=== PATIENT | male | born 1985 | race Caucasian/White ===

== ENCOUNTER → 2018-05-03 | Outpatient (CLI) | payer BC ==
[~2018-05-03] MED LIST: NO MEDS
--- NOTE | 2018-05-03 15:53 | Diagnostic Imaging Report ---
TECHNIQUE: Magnetic resonance imaging of the RIGHT ANKLE was performed WITHOUT injected contrast. COMPARISON: None available. HISTORY: Ankle pain FINDINGS: LIGAMENTS: Medial Complex: Deltoid contusion. Lateral Complex: Tibiofibular ligaments intact. High-grade tear of the anterior talofibular ligament and calcaneofibular ligament. TENDONS: Medial: Posterior tibial tendon and flexor tendons intact. Lateral: Reactive peroneal tenosynovitis. Anterior: Anterior tibial and extensor tendons intact Achilles: Achilles tendon intact. BONES: No focal or infiltrative bone marrow replacing abnormality. No acute fracture or osteonecrosis. JOINTS: Cartilage: No focal defect is identified involving the tibiotalar joint. Other: Ankle joint effusion. SOFT TISSUES: Soft tissue edema and swelling lateral ankle. IMPRESSION: Ankle inversion injury with high-grade tearing of the anterior talofibular and calcaneofibular ligaments. Reactive peroneal tenosynovitis. Ankle effusion. Signed by: Dr. Harinder Leone M.D. on 05/03/2018 3:50 PM
== END ==
LOC: MRI 13:32
PROVIDERS: ATTEND Podiatrist Foot & Ankle Surgery
DX: S93.411A Sprain of calcaneofibular ligament of right ankle, initial encounter (principal); S93.491A Sprain of other ligament of right ankle, initial encounter

== ENCOUNTER → 2018-05-15 | Day surgery (SDC) | payer BC ==
[~2018-05-15] MED LIST changes: +BUPIVACAINE HCL 0.5% INJ 30 ML VIAL INJ ONE; +CEFAZOLIN SOD 1 GM VIAL ONE; +CEFAZOLIN SOD 1 GM/NS 50ML 50 ML IV ONE; +DEXAMETHASONE SOD PHOS INJ 4 MG/ML VIAL ONE; +FENTANYL CITRATE/PF 100MCG/2 ML INJ ONE; +KETOROLAC TROMETHAMINE 30 MG/ML VIAL ONE; +MIDAZOLAM HCL 2 MG/2 ML VIAL ONE; +NEOSTIGMINE 1 MG/ML 10ML VIAL ONE; +ONDANSETRON HCL INJ 2MG/ML 2ML 2 MG/ML VIAL ONE; +PROPOFOL IV EMULSION 10 MG/ML 20 ML VIAL ONE; +SEVOFLURANE INHAL SOLN 250 ML PEN BTL ONE
--- OUTSIDE RECORDS SUMMARY | 2018-05-15 05:10 | XMS REPORT | Summary of Care ---
Author Organization Unknown Address Unknown Phone Unavailable Encounter [facility]USHT[facility]) [id number] Date(s): 08/27/13 - 08/28/[address] Discharge Disposition: Home Physician Attending: Jolene Michel MD Physician Admitting: Jolene Michel MD Physician_Referring: Jolene Michel MD Reason for Visit AFIB, SVT, PALPITATION Vital Signs 1 2 3 Most recent to oldest [Reference Range]: 180.34 cm (08/27/13 6:08 AM) Height 98.4 DegF (08/28/13 7:15 AM) 97.0 DegF (08/27/13 6:00 PM) Temperature Oral [96.4-99.1 DegF] 91 mmHg (08/28/13 7:15 AM) 96 mmHg (08/28/13 4:00 AM) 98 mmHg (08/27/13 9:33 PM) Systolic Blood Pressure [90-140 mmHg] 54 mmHg *LOW* (08/28/13 7:15 AM) 51 mmHg *LOW* (08/28/13 4:00 AM) 58 mmHg *LOW* (08/27/13 9:33 PM) Diastolic Blood Pressure [60-90 mmHg] 20 BRMIN (08/28/13 7:15 AM) 16 BRMIN (08/28/13 4:05 AM) 22 BRMIN *HI* (08/28/13 4:00 AM) Respiratory Rate [14-20 BRMIN] 70.455 kg (08/27/13 6:08 AM) Weight 21.66 m2 (08/27/13 6:08 AM) Body Mass Index Problem List Condition Effective Dates Status Health Status Informant Palpitations(Confirm Resolved ed) Allergies, Adverse Reactions, Alerts Substance Reaction Severity Status NKDA Active Medications Carafate 1 gm, 1 tab, Route: PO, Drug form: TAB, QID, Dosing Weight 70.455, kg, Start liberty e: 08/27/13 17:00:00, Duration: 30 day, Stop date: 09/26/13 13:00:00 Notes: May interfere w/enteral feeds - Take 1 hr before or 2 hr after antacids, dairy pdt, meals & minerals - On empty stomach. (Same As: Carafate) Start Date: 08/27/13 Stop Date: 08/28/13 Status: Discontinued flecainide 100 mg, 1 tab, Route: PO, Drug form: TAB, Q12H, Dosing Weight 70.455, kg, Start date: 08/27/13 21:00:00, Duration: 30 day, Stop date: 09/26/13 9:00:00 Notes: (Same as: Tambocor) Start Date: 08/27/13 Stop Date: 08/28/13 Status: Discontinued flecainide 100 mg oral tablet 100 mg=1 tab, PO, Q12H, # 60 tab, 0 Refill(s) Start Date: 08/27/13 Status: Ordered flumazenil 0.2 mg, 2 mL, Route: IVP, Drug form: INJ, PRN, Dosing Weight 70.455, kg, PRN Tayo zodiazepine Reversal, Initial dose, Start date: 08/27/13 11:49:00, Duration: 30 day, Stop date: 09/26/13 11:48:00 Notes: (Same as: Romazicon) Start Date: 08/27/13 Stop Date: 08/28/13 Status: Discontinued magnesium oxide 400 mg, 1 tab, Route: PO, Drug form: TAB, ONCE, Dosing Weight 70.455, kg, Start date: 08/28/13 9:35:00, Stop date: 08/28/13 9:35:00 Notes: (Same as: Mag-Ox 400)Magnesium oxide [id number] elemental magnesiumDose= ____mg magnesium oxide (___mg elemental magnesium) Start Date: 08/28/13 Stop Date: 08/28/13 Status: Completed magnesium oxide 600 mg oral capsule 600 mg=1 cap, PO, BID, # 14 cap, 0 Refill(s) Start Date: 08/28/13 Status: Ordered magnesium sulfate 2 gm, 50 mL, Route: IVPB, Drug form: INJ, Q2H, Dosing Weight 70.455, kg, Total d ose=4 gm, Start date: 08/28/13 8:00:00, Duration: 2 doses or times, Stop date: 0 08/28/13 10:00:00 Start Date: 08/28/13 Stop Date: 08/28/13 Status: Discontinued magnesium sulfate 2 gm, 50 mL, Route: IVPB, Drug form: INJ, ONCE, Dosing Weight 70.455, kg, Total dose=4 gm, Start date: 08/28/13 8:38:00, Stop date: 08/28/13 8:38:00 Start Date: 08/28/13 Stop Date: 08/28/13 Status: Completed meperidine 12.5 mg, 0.5 mL, Route: IVP, Drug form: INJ, Q30Min, Dosing Weight 70.455, kg, P RN Other -See Comment, For shivering, Start date: 08/27/13 11:49:00, Duration: 2 doses or times, Stop date: Limited # of times Notes: (Same as: Demerol) "Use Precaution in Elderly, Seizure disorders, and Re nal impairment" Start Date: 08/27/13 Stop Date: 08/28/13 Status: Discontinued morphine Sulfate 2 mg, 1 mL, Route: IVP, Drug form: INJ, Q2H, Dosing Weight 70.455, kg, PRN Pain, Start date: 08/27/13 15:24:00, Duration: 30 day, Stop date: 09/26/13 15:23:00 Notes: (Same as:MORPhine Sulfate) Start Date: 08/27/13 Stop Date: 08/28/13 Status: Discontinued naloxone 0.04 mg, 0.1 mL, Route: IVP, Drug form: INJ, Q2MIN, Dosing Weight 70.455, kg, MT N Narcotic Reversal, Start date: 08/27/13 11:49:00, Duration: 8 doses or times, Stop date: Limited # of times Notes: (Same as: Narcan) Start Date: 08/27/13 Stop Date: 08/28/13 Status: Discontinued [place] 5/325 oral tablet 1 tab, PO, Q4H, Pain Score 1-5, # 24 tab, 0 Refill(s) Start Date: 08/28/13 Status: Ordered [place] 5/325 oral tablet 1 tab, Route: PO, Drug Form: TAB, Dosing Weight 70.455, kg, Q4H, PRN Pain Score 1-5, Start date: 08/27/13 15:24:00, Duration: 30 day, Stop date: 09/26/13 15:23: 00 Notes: (Same as: [place] 325/5) Do not exceed 4gm/day of acetaminophen. Start Date: 08/27/13 Stop Date: 08/28/13 Status: Discontinued ondansetron 4 mg, 2 mL, Route: IVP, Drug form: INJ, ONCE, Dosing Weight 70.455, kg, PRN Naus ea & Vomiting, Start date: 08/27/13 11:49:00 Notes: (Same as: Zofran) Start Date: 08/27/13 Stop Date: 08/28/13 Status: Discontinued pantoprazole 40 mg oral enteric coated tablet 40 mg=1 tab, PO, Before Dinner, # 14 tab, 0 Refill(s) Start Date: 08/28/13 Status: Ordered Protonix 40 mg, 1 tab, Route: PO, Drug form: ECTAB, Before Dinner, Dosing Weight 70.455, kg, Start date: 08/27/13 16:30:00, Duration: 30 day, Stop date: 09/25/13 16:30:0 0 Notes: Tablet should not be chewed or crushed.(Same as: Protonix) Start Date: 08/27/13 Stop Date: 08/28/13 Status: Discontinued rivaroxaban 20 mg, 1 tab, Route: PO, Drug form: TAB, QPM, Dosing Weight 70.455, kg, Start da te: 08/27/13 20:00:00, Duration: 30 day, Stop date: 09/26/13 17:00:00 Notes: (Same as: Xarelto)Administer with food Start Date: 08/27/13 Stop Date: 08/28/13 Status: Discontinued sucralfate 1 g oral tablet 1 gm=1 tab, PO, QID, # 56 tab, 0 Refill(s) Start Date: 08/28/13 Status: Ordered Xarelto 20 mg oral tablet 0 Refill(s) Start Date: 08/27/13 Status: Ordered Results BLOOD BANK RESULTS Most recent to 1 2 oldest [Reference Range]: ABO/Rh A POS *Unknown* (08/27/13 6:00 AM) Antibody Scrn Negative (08/27/13 6:00 AM) ELECTROLYTES Most recent to 1 2 oldest [Reference Range]: Sodium Lvl [135-145 142 mEq/L 145 mEq/L mEq/L] (08/28/13 3:53 AM) (08/27/13 6:17 AM) Potassium Lvl 3.7 mEq/L 4.0 mEq/L [3.5-5.1 mEq/L] (08/28/13 3:53 AM) (08/27/13 6:17 AM) Chloride Lvl [95-109 107 mEq/L 108 mEq/L mEq/L] (08/28/13 3:53 AM) (08/27/13 6:17 AM) CO2 [24-32 mEq/L] 25 mEq/L 29 mEq/L (08/28/13 3:53 AM) (08/27/13 6:17 AM) AGAP [10.0-20.0 13.7 mEq/L 12.0 mEq/L mEq/L] (08/28/13 3:53 AM) (08/27/13 6:17 AM) CHEM PANEL Most recent to 1 2 oldest [Reference Range]: Creatinine Lvl 0.9 mg/dL 1.0 mg/dL [0.5-1.4 mg/dL] (08/28/13 3:53 AM) (08/27/13 6:17 AM) eGFR 117 mL/min/1.73m2 1 103 mL/min/1.73m2 2 *NA* *NA* (08/28/13 3:53 AM) (08/27/13 6:17 AM) BUN [7-22 mg/dL] 10 mg/dL 17 mg/dL (08/28/13 3:53 AM) (08/27/13 6:17 AM) Glucose Lvl [70-99 107 mg/dL 3 90 mg/dL 4 mg/dL] *HI* (08/27/13 6:17 AM) (08/28/13 3:53 AM) Calcium Lvl 8.2 mg/dL 9.0 mg/dL [8.5-10.5 mg/dL] *LOW* (08/27/13 6:17 AM) (08/28/13 3:53 AM) Magnesium Lvl 1.5 mg/dL 2.1 mg/dL [1.8-2.4 mg/dL] *LOW* (08/27/13 6:17 AM) (08/28/13 3:53 AM) 1Result Comment: The eGFR is calculated using the CKD-EPI formula. In most young, healthy individuals the eGFR will be >90 mL/min/1.73m2. The eGFR declines with age. An eGFR of 60-89 may be normal in some populations, particularly the elderly, for whom the CKD-EPI formula has not been extensively validated. Use of the eGFR is not recommended in the following populations: Individuals with unstable creatinine concentrations, including patients and those with serious co-morbid conditions. Patients with extremes in muscle mass or diet. The data above are obtained from the National Kidney Disease Education Program ( NKDEP) which additionally recommends that when the eGFR is used in patients with extremes of body mass index for purposes of drug dosing, the eGFR should be mul tiplied by the estimated BMI. 2Result Comment: The eGFR is calculated using the CKD-EPI formula. In most young, healthy individuals the eGFR will be >90 mL/min/1.73m2. The eGFR declines with age. An eGFR of 60-89 may be normal in some populations, particularly the elderly, for whom the CKD-EPI formula has not been extensively validated. Use of the eGFR is not recommended in the following populations: Individuals with unstable creatinine concentrations, including patients and those with serious co-morbid conditions. Patients with extremes in muscle mass or diet. The data above are obtained from the National Kidney Disease Education Program ( NKDEP) which additionally recommends that when the eGFR is used in patients with extremes of body mass index for purposes of drug dosing, the eGFR should be mul tiplied by the estimated BMI. 3Interpretive Data: Adult reference range values reflect the clinical guidelines of the [place] [employer]. 4Interpretive Data: Adult reference range values reflect the clinical guidelines of the [place] [employer]. HEMATOLOGY Most recent to 1 2 oldest [Reference Range]: WBC [3.7-10.4 K/CMM] 10.6 K/CMM 4.9 K/CMM *HI* (08/27/13 6:17 AM) (08/28/13 3:53 AM) RBC [4.70-6.10 3.80 M/CMM 4.61 M/CMM M/CMM] *LOW* *LOW* (08/28/13 3:53 AM) (08/27/13 6:17 AM) Hgb [14.0-18.0 g/dL] 12.2 g/dL 14.6 g/dL *LOW* (08/27/13 6:17 AM) (08/28/13 3:53 AM) Hct [42.0-54.0 %] 36.4 % 43.1 % *LOW* (08/27/13 6:17 AM) (08/28/13 3:53 AM) MCV [80.0-94.0 fL] 95.7 fL 93.5 fL *HI* (08/27/13 6:17 AM) (08/28/13 3:53 AM) MCH [27.0-31.0 pg] 32.1 pg 31.6 pg *HI* *HI* (08/28/13 3:53 AM) (08/27/13 6:17 AM) MCHC [32.0-36.0 33.5 g/dL 33.8 g/dL g/dL] (08/28/13 3:53 AM) (08/27/13 6:17 AM) RDW [11.5-14.5 %] 13.3 % 13.6 % (08/28/13 3:53 AM) (08/27/13 6:17 AM) Platelet [133-450 162 K/CMM 196 K/CMM K/CMM] (08/28/13 3:53 AM) (08/27/13 6:17 AM) MPV [7.4-10.4 fL] 9.7 fL 9.4 fL (08/28/13 3:53 AM) (08/27/13 6:17 AM) Segs [45.0-75.0 %] 79.3 % 49.7 % *HI* (08/27/13 6:17 AM) (08/28/13 3:53 AM) Lymphocytes 11.4 % 36.0 % [20.0-40.0 %] *LOW* (08/27/13 6:17 AM) (08/28/13 3:53 AM) Monocytes [2.0-12.0 9.0 % 10.8 % %] (08/28/13 3:53 AM) (08/27/13 6:17 AM) Eosinophils [0.0-4.0 0.2 % 2.9 % %] (08/28/13 3:53 AM) (08/27/13 6:17 AM) Basophils [0.0-1.0 0.1 % 0.6 % %] (08/28/13 3:53 AM) (08/27/13 6:17 AM) Segs-Bands # 8.4 K/CMM 2.4 K/CMM [1.5-8.1 K/CMM] *HI* (08/27/13 6:17 AM) (08/28/13 3:53 AM) Lymphocytes # 1.2 K/CMM 1.8 K/CMM [1.0-5.5 K/CMM] (08/28/13 3:53 AM) (08/27/13 6:17 AM) Monocytes # [0.0-0.8 1.0 K/CMM 0.5 K/CMM K/CMM] *HI* (08/27/13 6:17 AM) (08/28/13 3:53 AM) Eosinophils # 0.1 K/CMM [0.0-0.5 K/CMM] (08/27/13 6:17 AM) Basophils # [0.0-0.2 0.3 K/CMM K/CMM] *HI* (08/27/13 6:17 AM) PT [12.0-14.7 14.0 seconds seconds] (08/27/13 6:17 AM) INR [0.85-1.17] 1.09 5 (08/27/13 6:17 AM) POC Activated 139 seconds Clotting Time *NA* (08/27/13 1:19 PM) PTT [22.9-35.8 30.6 seconds 6 seconds] (08/27/13 6:17 AM) 5Interpretive Data: RECOMMENDED RANGES FOR PROTIME INR: 2.0-3.0 for most medical and surgical thromboembolic states. 2.5-3.5 for artificial heart valves and recurrent embolism. INR SHOULD BE USED ONLY FOR PATIENTS ON STABLE ANTICOAGULANT THERAPY. 6Interpretive Data: Heparin Therapeutic Range: 57 - 92 Seconds Medications Administered During Your Visit No data available for this section Immunizations No data available for this section Procedures Procedure Type Body Site Date of Procedure Related Diagnosis Incision AND drainage ORIF - Open reduction and internal fixation of fracture Social History Social History Type Response Alcohol Use: Current, Frequency: 1-2 times per week Smoking Status Former smoker, Exposure to Tobacco Smoke None, Cigarette Smoking Last 365 Days No, Reg Smoking Cessation Counseling No Assessment and Plan Extracted from: Title: EP Note Author: Tricia Reyes MD Date: 08/28/13 Progress Note - Daily [facility] Completed: , AUG 28, 2013, 07:50 by Tricia Reyes MD RM: 117 - 00, [id number], [id number] (: 1985) M Attending: Jolene Michel MDPhone: Service: Cardiology Service Reason for Admission: AFIB, SVT, PALPITATION Allergies: NKDA SUBJECTIVE: No complaints of palpitations or chest pain. States he has some dysuria and dyspepsia. Otherwise, doing well post ablation. OBJECTIVE Telemetry: No events overnight Gen: Sleeping but arousible. NAD. HEENT: PERRLA, EOMI. No JVD/bruits. CV: RRR, no murmurs, rubs or gallops. Resp: Lungs CTAB Abd: NABS, abdomen soft, NT. Ext: Groins bilaterally without hematoma, No bruising noted. No edema. 24hr Labs 08/28 0353 CHEM Glucose Cgk762 H BUN10 Creatinine Lvl0.9 Sodium Ldo481 Potassium Lvl3.7 Chloride Wgz334 CO225 AGAP13.7 Calcium Lvl8.2 L nVOZ981 Magnesium Lvl1.5 CBC WBC10.6 H RBC3.80 L Hgb12.2 L Hct36.4 L MCV95.7 H MCH32.1 H MCHC33.5 RDW13.3 Ceiezzoe055 MPV9.7 Segs79.3 H Monocytes9.0 Vwekozxukkz91.4 L Eosinophils0.2 Basophils0.1 Segs-Bands #8.4 H Lymphocytes #1.2 Monocytes #1.0 H 08/27 1319 POC Activated [id number] 08/27 0617 Basophils #0.3 H 08/27 0600 Antibody ScrnNegative ABO/RhA POS [place] still necessary (Yes/No): Line still necessary (Yes/No): VitalsTmp(F)[id number] 08/28 04:05----84-----16------ 08/28 04:00----8296/5122------ 08/27 21:33----8498/5826------ 08/27 18:0097.98347/[id number]--- 08/27 17:00----[id number]--- 24 Hr Tmax: 97.6F (36.44c) at 08/27 12:45Vital Signs are the last 5 in the past 48 hours. DateWt(kg)Wt(lb)Ht(cm)Ht(in)Method 08/27 (initial) 70.45 155.28259.34 71.00Stated I&ORecordInOutBal /0224hr Tot 8777 543 4720 0124hr Tot 0 0 0 Medications (9) Active Scheduled Meds (4): 08/27/13 flecainide 100 mg PO Q12H 08/27/13 pantoprazole (Protonix) 40 mg PO Before Dinner 08/27/13 rivaroxaban 20 mg PO QPM 08/27/13 sucralfate (Carafate) 1 gm PO QID Unscheduled Meds: None PRN Meds (5): 08/27/13 acetaminophen-hydrocodone ([place] 5/325 oral tablet) 1 tab PO Q4H 08/27/13 flumazenil 0.2 mg IVP PRN 08/27/13 meperidine 12.5 mg IVP Q30Min 08/27/13 morphine Sulfate 2 mg IVP Q2H 08/27/13 naloxone 0.04 mg IVP Q2MIN One Time Meds: None Continuous Infusions: None ASSESSMENT 27 year old with history of atrial fibrillation, s/p PVI. Doing well post procedure. PLAN & TREATMENT 1. Anticipate discharge today with flecanide, PPI. 2. Will give Magnesium this AM to replete. 3. Rest per Dr. Anand Reyes M.D. EP Fellow
--- OUTSIDE RECORDS SUMMARY | 2018-05-15 05:10 | XMS REPORT | Summary of Care ---
Author Organization Unknown Address Unknown Phone Unavailable Encounter [facility](MUSHTAQ) [id number] Date(s): 08/25/13 - 08/25/13 [place] [id number] [address] Discharge Disposition: Home Physician Attending: Jolene Michel MD Physician_Referring: Jolene Michel MD Reason for Visit 427.31/ 427.89/785.1/786.05 Problem List Condition Effective Dates Status Health Status Informant Palpitations(Confirm Resolved ed) Allergies, Adverse Reactions, Alerts Substance Reaction Severity Status NKDA Active Medications No data available for this section Results CHEM PANEL Most recent to 1 oldest [Reference Range]: eGFR 92 mL/min/1.73m2 1 *NA* (08/25/13 2:08 PM) POC Creatinine 1.1 mg/dL [0.5-1.4 mg/dL] (08/25/13 2:08 PM) 1Result Comment: The eGFR is calculated using [...] be mul tiplied by the estimated BMI. Medications Administered During Your Visit No data available for this section Immunizations No data available for this section Social History Social History Type Response Alcohol Use: Current, Frequency: 1-2 times per week Smoking Status Former smoker, Exposure to Tobacco Smoke None, Cigarette Smoking Last 365 Days No, Reg Smoking Cessation Counseling No
--- OUTSIDE RECORDS SUMMARY | 2018-05-15 05:10 | XMS REPORT | Continuity of Care Document ---
Author Author [facility] Interface Address Unknown Phone Unavailable Problems Problem Status Onset Date Classification Date Reported Comments Source AFIB, SVT, PALPITATION Active 08/15/2013 [facility] 427.31/ 427.89/785.1/786.05 Active 08/15/2013 [facility] Palpitations Resolved Problem 08/30/2013 [facility] Medications Medication Details Route Status Patient Instructions Ordering Provider Order Date Source Magnesium Oxide 400 mg, 1 tab, Route: PO, Drug form: TAB, ONCE, Dosing Weight 70.455, kg, Start date: 08/28/13 9:35:00, Stop date: 08/28/13 9:35:00Notes: (Same as: Mag-Ox 400) Magnesium oxide [id number] elemental magnesium Dose=____mg magnesium oxide (___mg elemental magnesium) Inactive 08/28/2013 [facility] magnesium oxide 600 mg oral capsule 600 mg=1 cap, PO, BID, # 14 cap, 0 Refill(s) Active 08/28/2013 [facility] Magnesium Sulfate 2 gm, 50 mL, Route: IVPB, Drug form: INJ, ONCE, Dosing Weight 70.455, kg, Total dose=4 gm, Start date: 08/28/13 8:38:00, Stop date: 08/28/13 8:38:00 Inactive 08/28/2013 [facility] sucralfate 1 g oral tablet 1 gm=1 tab, PO, QID, # 56 tab, 0 Refill(s) Active 08/28/2013 [facility] pantoprazole 40 mg oral enteric coated tablet 40 mg=1 tab, PO, Before Dinner, # 14 tab, 0 Refill(s) Active 08/28/2013 [facility] Acetaminophen 325 MG / Hydrocodone Bitartrate 5 MG Oral Tablet [Hobbs 5/325] 1 tab, PO, Q4H, Pain Score 1-5, # 24 tab, 0 Refill(s) Active 08/28/2013 [facility] Magnesium Sulfate 2 gm, 50 mL, Route: IVPB, Drug form: INJ, Q2H, Dosing Weight 70.455, kg, Total dose=4 gm, Start date: 08/28/13 8:00:00, Duration: 2 doses or times, Stop date: 08/28/13 10:00:00 Inactive 08/28/2013 [facility] Flecainide 100 mg, 1 tab, Route: PO, Drug form: TAB, Q12H, Dosing Weight 70.455, kg, Start date: 08/27/13 21:00:00, Duration: 30 day, Stop date: 09/26/13 9:00:00Notes: (Same as: Tambocor) No Longer Active 08/28/2013 [facility] rivaroxaban 20 mg, 1 tab, Route: PO, Drug form: TAB, QPM, Dosing Weight 70.455, kg, Start date: 08/27/13 20:00:00, Duration: 30 day, Stop date: 09/26/13 17:00:00Notes: (Same as: Xarelto) Administer with food No Longer Active 08/28/2013 [facility] Carafate 1 gm, 1 tab, Route: PO, Drug form: TAB, QID, Dosing Weight 70.455, kg, Start date: 08/27/13 17:00:00, Duration: 30 day, Stop date: 09/26/13 13:00:00Notes: May interfere w/enteral feeds - Take 1 hr before or 2 hr after antacids, dairy pdt, meals & minerals - On empty stomach. (Same As: Carafate) No Longer Active 08/27/2013 [facility] Protonix 40 mg, 1 tab, Route: PO, Drug form: ECTAB, Before Dinner, Dosing Weight 70.455, kg, Start date: 08/27/13 16:30:00, Duration: 30 day, Stop date: 09/25/13 16:30:00Notes: Tablet should not be chewed or crushed. (Same as: Protonix) No Longer Active 08/27/2013 [facility] Acetaminophen 325 MG / Hydrocodone Bitartrate 5 MG Oral Tablet [Hobbs 5/325] 1 tab, Route: PO, Drug Form: TAB, Dosing Weight 70.455, kg, Q4H, PRN Pain Score 1-5, Start date: 08/27/13 15:24:00, Duration: 30 day, Stop date: 09/26/13 15:23:00Notes: (Same as: Hobbs 325/5) Do not exceed 4gm/day of acetaminophen. No Longer Active 08/27/2013 [facility] Morphine 2 mg, 1 mL, Route: IVP, Drug form: INJ, Q2H, Dosing Weight 70.455, kg, PRN Pain, Start date: 08/27/13 15:24:00, Duration: 30 day, Stop date: 09/26/13 15:23:00Notes: (Same as:MORPhine Sulfate) No Longer Active 08/27/2013 [facility] Ondansetron 4 mg, 2 mL, Route: IVP, Drug form: INJ, ONCE, Dosing Weight 70.455, kg, PRN Nausea & Vomiting, Start date: 08/27/13 11:49:00Notes: (Same as: Zofran) No Longer Active 08/27/2013 [facility] Naloxone 0.04 mg, 0.1 mL, Route: IVP, Drug form: INJ, Q2MIN, Dosing Weight 70.455, kg, PRN Narcotic Reversal, Start date: 08/27/13 11:49:00, Duration: 8 doses or times, Stop date: Limited # of timesNotes: (Same as: Narcan) No Longer Active 08/27/2013 [facility] Flumazenil 0.2 mg, 2 mL, Route: IVP, Drug form: INJ, PRN, Dosing Weight 70.455, kg, PRN Benzodiazepine Reversal, Initial dose, Start date: 08/27/13 11:49:00, Duration: 30 day, Stop date: 09/26/13 11:48:00Notes: (Same as: Romazicon) No Longer Active 08/27/2013 [facility] Meperidine 12.5 mg, 0.5 mL, Route: IVP, Drug form: INJ, Q30Min, Dosing Weight 70.455, kg, PRN Other -See Comment, For shivering, Start date: 08/27/13 11:49:00, Duration: 2 doses or times, Stop date: Limited # of t imesNotes: (Same as: Demerol) "Use Precaution in Elderly, Seizure disorders, and Renal impairment" No Longer Active 08/27/2013 [facility] rivaroxaban 0 Refill(s) Active 08/27/2013 [facility] flecainide 100 mg oral tablet 100 mg=1 tab, PO, Q12H, # 60 tab, 0 Refill(s) Active 08/27/2013 [facility] Allergies, Adverse Reactions, Alerts Substance Category Reaction Severity Reaction type Status Date Reported Comments Source Immunizations Immunization Date Given Site Status Last Updated Comments Source Results Order Name Results Value Reference Range Date Interpretation Comments Source CHEM PANEL Magnesium Lvl 1.5 mg/dL 1.8 - 2.4 08/28/2013 [facility] ELECTROLYTES AGAP 13.7 meq/L 10.0 - 20.0 08/28/2013 [facility] ELECTROLYTES eGFR 117 mL/min/1.73m2 08/28/2013 1Result Comment: The eGFR is calculated using [...] from the National Kidney Disease Education Program (NKDEP) which additionally recommends that when the eGFR is used in patients with extremes of body mass index for purposes of drug dosing, the eGFR should be multiplied by the estimated BMI. [facility] ELECTROLYTES Calcium Lvl 8.2 mg/dL 8.5 - 10.5 08/28/2013 [facility] ELECTROLYTES Potassium Lvl 3.7 meq/L 3.5 - 5.1 08/28/2013 [facility] ELECTROLYTES Chloride Lvl 107 meq/L 95 - 109 08/28/2013 [facility] ELECTROLYTES CO2 25 meq/L 24 - 32 08/28/2013 [facility] ELECTROLYTES BUN 10 mg/dL 7 - 22 08/28/2013 [facility] ELECTROLYTES Creatinine Lvl 0.9 mg/dL 0.5 - 1.4 08/28/2013 [facility] ELECTROLYTES Sodium Lvl 142 meq/L 135 - 145 08/28/2013 [facility] ELECTROLYTES Glucose Lvl 107 mg/dL 70 - 99 08/28/2013 3Interpretive Data: Adult reference range values reflect the clinical guidelines of the [place] [employer]. [facility] HEMATOLOGY Monocytes # 1.0 K/CMM 0.0 - 0.8 08/28/2013 [facility] HEMATOLOGY Segs 79.3 % 45.0 - 75.0 08/28/2013 [facility] HEMATOLOGY Lymphocytes 11.4 % 20.0 - 40.0 08/28/2013 [facility] HEMATOLOGY Monocytes 9.0 % 2.0 - 12.0 08/28/2013 [facility] HEMATOLOGY Basophils 0.1 % 0.0 - 1.0 08/28/2013 [facility] HEMATOLOGY Lymphocytes # 1.2 K/CMM 1.0 - 5.5 08/28/2013 [facility] HEMATOLOGY Eosinophils 0.2 % 0.0 - 4.0 08/28/2013 [facility] HEMATOLOGY Segs-Bands # 8.4 K/CMM 1.5 - 8.1 08/28/2013 [facility] HEMATOLOGY RBC 3.80 M/CMM 4.70 - 6.10 08/28/2013 [facility] HEMATOLOGY Hgb 12.2 g/dL 14.0 - 18.0 08/28/2013 [facility] HEMATOLOGY MCV 95.7 fL 80.0 - 94.0 08/28/2013 [facility] HEMATOLOGY MCH 32.1 pg 27.0 - 31.0 08/28/2013 [facility] HEMATOLOGY RDW 13.3 % 11.5 - 14.5 08/28/2013 [facility] HEMATOLOGY MCHC 33.5 g/dL 32.0 - 36.0 08/28/2013 [facility] HEMATOLOGY MPV 9.7 fL 7.4 - 10.4 08/28/2013 [facility] HEMATOLOGY Platelet 162 K/CMM 133 - 450 08/28/2013 [facility] HEMATOLOGY WBC 10.6 K/CMM 3.7 - 10.4 08/28/2013 [facility] HEMATOLOGY Hct 36.4 % 42.0 - 54.0 08/28/2013 [facility] HEMATOLOGY POC Activated Clotting Time 139 s 08/27/2013 [facility] CHEM PANEL Magnesium Lvl 2.1 mg/dL 1.8 - 2.4 08/27/2013 [facility] ELECTROLYTES AGAP 12.0 meq/L 10.0 - 20.0 08/27/2013 [facility] ELECTROLYTES eGFR 103 mL/min/1.73m2 08/27/2013 2Result Comment: The eGFR is calculated using [...] from the National Kidney Disease Education Program (NKDEP) which additionally recommends that when the eGFR is used in patients with extremes of body mass index for purposes of drug dosing, the eGFR should be multiplied by the estimated BMI. [facility] ELECTROLYTES Potassium Lvl 4.0 meq/L 3.5 - 5.1 08/27/2013 [facility] ELECTROLYTES Calcium Lvl 9.0 mg/dL 8.5 - 10.5 08/27/2013 [facility] ELECTROLYTES Glucose Lvl 90 mg/dL 70 - 99 08/27/2013 4Interpretive Data: Adult reference range values reflect the clinical guidelines of the [place] [employer]. [facility] ELECTROLYTES BUN 17 mg/dL 7 - 22 08/27/2013 [facility] ELECTROLYTES Chloride Lvl 108 meq/L 95 - 109 08/27/2013 [facility] ELECTROLYTES CO2 29 meq/L 24 - 32 08/27/2013 [facility] ELECTROLYTES Creatinine Lvl 1.0 mg/dL 0.5 - 1.4 08/27/2013 [facility] ELECTROLYTES Sodium Lvl 145 meq/L 135 - 145 08/27/2013 [facility] HEMATOLOGY PTT 30.6 s 22.9 - 35.8 08/27/2013 6Interpretive Data: Heparin Therapeutic Range: 57 - 92 Seconds [facility] HEMATOLOGY PT 14.0 s 12.0 - 14.7 08/27/2013 [facility] HEMATOLOGY INR 1.09 0.85 - 1.17 08/27/2013 5Interpretive Data: RECOMMENDED RANGES FOR PROTIME INR: 2.0-3.0 for most medical and surgical thromboembolic states. 2.5-3.5 for artificial heart valves and recurrent embolism. INR SHOULD BE USED ONLY FOR PATIENTS ON STABLE ANTICOAGULANT THERAPY. [facility] HEMATOLOGY MPV 9.4 fL 7.4 - 10.4 08/27/2013 [facility] HEMATOLOGY RDW 13.6 % 11.5 - 14.5 08/27/2013 [facility] HEMATOLOGY Platelet 196 K/CMM 133 - 450 08/27/2013 [facility] HEMATOLOGY MCHC 33.8 g/dL 32.0 - 36.0 08/27/2013 [facility] HEMATOLOGY MCH 31.6 pg 27.0 - 31.0 08/27/2013 [facility] HEMATOLOGY Hct 43.1 % 42.0 - 54.0 08/27/2013 [facility] HEMATOLOGY RBC 4.61 M/CMM 4.70 - 6.10 08/27/2013 [facility] HEMATOLOGY Hgb 14.6 g/dL 14.0 - 18.0 08/27/2013 [facility] HEMATOLOGY WBC 4.9 K/CMM 3.7 - 10.4 08/27/2013 [facility] HEMATOLOGY MCV 93.5 fL 80.0 - 94.0 08/27/2013 [facility] HEMATOLOGY Basophils # 0.3 K/CMM 0.0 - 0.2 08/27/2013 [facility] HEMATOLOGY Segs-Bands # 2.4 K/CMM 1.5 - 8.1 08/27/2013 [facility] HEMATOLOGY Basophils 0.6 % 0.0 - 1.0 08/27/2013 [facility] HEMATOLOGY Eosinophils # 0.1 K/CMM 0.0 - 0.5 08/27/2013 [facility] HEMATOLOGY Monocytes # 0.5 K/CMM 0.0 - 0.8 08/27/2013 [facility] HEMATOLOGY Lymphocytes # 1.8 K/CMM 1.0 - 5.5 08/27/2013 [facility] HEMATOLOGY Segs 49.7 % 45.0 - 75.0 08/27/2013 [facility] HEMATOLOGY Eosinophils 2.9 % 0.0 - 4.0 08/27/2013 [facility] HEMATOLOGY Lymphocytes 36.0 % 20.0 - 40.0 08/27/2013 [facility] HEMATOLOGY Monocytes 10.8 % 2.0 - 12.0 08/27/2013 [facility] BLOOD BANK RESULTS ABO/Rh A POS 08/27/2013 [facility] BLOOD BANK RESULTS Antibody Scrn Negative (08/27/13 6:00 AM) 08/27/2013 [facility] CHEM PANEL eGFR 92 mL/min/1.73m2 08/25/2013 1Result Comment: The eGFR is calculated using [...] from the National Kidney Disease Education Program (NKDEP) which additionally recommends that when the eGFR is used in patients with extremes of body mass index for purposes of drug dosing, the eGFR should be multiplied by the estimated BMI. [facility] CHEM PANEL POC Creatinine 1.1 mg/dL 0.5 - 1.4 08/25/2013 [facility] Pulmonary Vein Mapping CT Pulmonary Vein Mapping CT CT CHEST WITH CONTRAST FOR PULMONARY VEIN MAPPING 2013-08-25 14:53:00 COMPARISON: None CLINICAL INDICATION: Chest pain TECHNIQUE: Following intravenous administration of 85 cc Visipaque 320 contrast, the chest was scanned from apices to the bases. Multiplanar reformatted images in the sagittal and coronal planes as well as maximal intensity projection (MIP) images were reviewed. FINDINGS: MEDIASTINUM/TRENT/VESSELS: Pulmonary venous anatomy is near typical. There are 2 right pulmonary veins. On the left, there is a common venous trunk. No CT evidence of intracardiac thrombus. The esophagus comes in closest proximity to the left common trunk. Cardiac size is normal. No pericardial fluid or thickening. No mediastinal or hilar adenopathy. LUNGS/PLEURA: Note of apical scarring on the right. No airspace or interstitial lung disease. No suspicious pulmonary nodules. No pleural effusions or pneumothorax. BONES/SOFT TISSUES: No acute skeletal abnormality. UPPER ABDOMEN: No acute findings within imaged portions of upper abdomen. CONCLUSION: Near typical pulmonary venous anatomy with 2 right pulmonary veins and a common trunk on the left. The esophagus comes in closest proximity to the left common trunk. 08/25/2013 - - Read by: Kel Jean Baptiste MD Dictated Date/time: 08/25/13 15:43 Electronically Signed by: Kel Jean Baptiste MD 08/25/13 15:47 FINAL REPORT [facility] Vital Signs Vital Sign Value Date Comments Source Diastolic (mm Hg) 54 08/28/2013 [facility] Temperature Oral (F) 98.4 F 08/28/2013 [facility] Systolic (mm Hg) 91 08/28/2013 [facility] Respitory Rate 20 08/28/2013 [facility] Respitory Rate 16 08/28/2013 [facility] Systolic (mm Hg) 96 08/28/2013 [facility] Diastolic (mm Hg) 51 08/28/2013 [facility] Respitory Rate 22 08/28/2013 [facility] Diastolic (mm Hg) 58 08/28/2013 [facility] Systolic (mm Hg) 98 08/28/2013 [facility] Temperature Oral (F) 97.0 F 08/27/2013 [facility] Height 180.34 cm 08/27/2013 [facility] BMI Calculated 21.66 08/27/2013 [facility] Weight 70.455 08/27/2013 [facility] Encounters Location Location Details Encounter Type Encounter Number Reason For Visit Attending Provider ADM Date DC Date Status Source [facility] Outpatient [id number] [facility] 08/25/2013 08/26/2013 [facility] [id number] [facility] 08/27/2013 08/28/2013 [facility] Procedures Procedure Code Date Perfomer Comments Source Incision AND drainage [id number] [facility] ORIF - Open reduction and internal fixation of fracture [id number] [facility]
--- OUTSIDE RECORDS SUMMARY | 2018-05-15 05:10 | XMS REPORT ---
Author Author [facility] Address Unknown Phone Unavailable Care Team Providers Care Back End Engineer Name Role Phone Gianni SARGENT Unavailable Unavailable Problems This patient has no known problems. Allergies, Adverse Reactions, Alerts This patient has no known allergies or adverse reactions. Medications This patient has no known medications. Results Test Description Test Time Test Comments Text Results Atomic Results Result Comments MRI ANKLE RIGHT WO 2018-05-03 15:48:00 [place] [id number] [place] [address] Patient Name: HARRIETT PIEDRA MR #: [id number] : 1985 Age/Sex: 32/M Req #: [id number] Adm Physician: Ordered by: Gianni SARGENT DPM Report #: [id number] Location: MRI Room/Bed: Procedure: [id number] MRI/MRI ANKLE RIGHT WO Exam Date: Exam Time: REPORT STATUS: Signed TECHNIQUE: Magnetic resonance imaging of the RIGHT ANKLE was pe rformed WITHOUT injected contrast. COMPARISON: None available. HISTORY: Ankle pain FINDINGS: LIGAMENTS: Medial Complex: Deltoid contusion. Lateral Complex: Tibiofibular ligaments intact. High-grade tear of the anterior talofibular ligament and calcaneofibular ligament. TENDONS: Medial: Posterior tibial tendon and flexor tendons intact. Lateral: Reactive peroneal tenosynovitis. Anterior: Anterior tibial and extensor tendons intact Achilles: Achilles tendon intact. BONES: No focal or infiltrative bone marrow replacing abnormality. No acute fracture or osteonecrosis. JOINTS: Cartilage: No focal defect is identified involving the tibiotalar joint. Other: Ankle joint effusion. SOFT TISSUES: Soft tissue edema and swelling lateral ankle. IMPRESSION: Ankle inversion injury with high-grade tearing of the anterior talofibular and calcaneofibular ligaments. Reactive peroneal tenosynovitis. Ankle effusion. Signed by: Dr. Sheyla Beth M.D. on 05/03/2018 3:50 PM Dictated By: SHEYLA BETH MD [id number] Transcribed By: BELLA on 05/03/18 [id number] COPY TO: iGanni SARGENT DPM
[2018-05-15 08:40] VITALS: BP 110/78
--- NOTE | 2018-05-15 16:10 | Operative Report ---
DATE OF PROCEDURE: 05/15/2018 SURGEON: Millie Branham DPM [employer] SURGEON: Gianni Glass DPM PREOPERATIVE DIAGNOSIS: Right anterior talofibular ligament and right calcaneofibular ligament rupture. POSTOPERATIVE DIAGNOSIS: Right anterior talofibular ligament and right calcaneofibular ligament rupture. PLANNED PROCEDURE: Brostrom lateral ankle reconstruction. [employer]: Millie Branham DPM ANESTHESIA: General with a postoperative block consisting of 15 mL of 0.5% Marcaine plain mixed with 1 mL of dexamethasone phosphate. HEMOSTASIS: Pneumatic thigh tourniquet set at 350 mmHg for a total time of approximately 30 minutes. MATERIALS: One G2 bone anchor, 0 Ethibond, 3-0 Vicryl, 4-0 Prolene. ESTIMATED BLOOD LOSS: Less than 10 mL. PATHOLOGY: None. PROCEDURE NOTE: The patient was seen in the preoperative waiting room, where the correct procedure and site was identified. The patient was brought to the operating room and placed on the operating table in the supine position. General anesthesia was initiated. At this time, a well-padded pneumatic tourniquet was placed about the patient's right thigh. The right foot, ankle, and leg were then scrubbed, prepped, and draped in the usual aseptic manner. The right foot, ankle, and leg were exsanguinated with an Esmarch bandage and the pneumatic thigh tourniquet was inflated to 350 mmHg for a total time of approximately 30 minutes. Attention was directed to the lateral aspect of the patient's right ankle, where a J type incision was made extending at the anterior aspect of the distal fibula wrapping plantarly along the distal tip of the fibula. The incision was carried through subcutaneous tissue them from deeper underling structures, all vital neurovascular structures were identified and retracted medially and laterally and all bleeders were cauterized or ligated as deemed necessary. Next, attention was directed to the lateral aspect of the ankle, where through blunt dissection the extensor retinaculum was noted and incised giving way to the ankle joint capsule as well as ATFL ligament, which was easily identified and noted to be severely attenuated with clotted heme. This was incised along the anterior aspect of the ankle as well as wrapping around inferiorly to the distal tip of the fibula where the ruptured calcaneofibular ligament was also identified. The wound was then flushed with copious amounts of sterile saline. At this point, per manufacture protocol, one G2 bone anchor was placed in the distal lateral aspect of the fibula. The sutures were then used to repair the anterior talofibular ligament distally, which was tied. The correct location of the bone anchor was noted on intraoperative fluoroscopy. The remaining retinaculum and ankle joint capsule were reapproximated utilizing horizontal mattress sutures with 0 Ethibond as well as the calcaneofibular ligament. The subcutaneous tissues were reapproximated with 3-0 Vicryl and the skin was closed using simple interrupted sutures with 4-0 Prolene. The incision site was dressed with Adaptic, 4x4s, Kerlix followed by Webril, 4 x 30 posterior splint and 4-inch Ced wrap. The patient tolerated procedure and anesthesia well. The patient was transferred to the postoperative recovery room with vital signs stable and vascular status intact. The patient was monitored there for a short period time before being sent home with the following written and oral instructions: 1. Keep the dressing clean, dry, intact. 2. The patient is to remain nonweightbearing in the posterior splint and to avoid any ambulation until being seen in the office. 3. The patient was given office number to contact us if any problems arise. Dictated by Millie Branham DPM S PARRIS Singer (Charley)/MODL /[id number] FELIBERTO
== END | disposition home or self-care (01) ==
LOC: OR 05:00
PROVIDERS: ATTEND Podiatrist Foot & Ankle Surgery
DX: S93.491A Sprain of other ligament of right ankle, initial encounter (principal); S93.411A Sprain of calcaneofibular ligament of right ankle, initial encounter; I48.91 Unspecified atrial fibrillation; X58.XXXA Exposure to other specified factors, initial encounter; Z01.810 Encounter for preprocedural cardiovascular examination
CPT/HCPCS: 27696; 93005; J0690 ×2; J1100; J1885; J2250; J2405; J2704; C1713; J2710

== ENCOUNTER 2018-07-02 14:59 | Outpatient (RCR) | payer BC ==
[~2018-07-02 14:59] MED LIST changes: -BUPIVACAINE HCL 0.5% INJ 30 ML VIAL INJ ONE; -CEFAZOLIN SOD 1 GM VIAL ONE; -CEFAZOLIN SOD 1 GM/NS 50ML 50 ML IV ONE; -DEXAMETHASONE SOD PHOS INJ 4 MG/ML VIAL ONE; -FENTANYL CITRATE/PF 100MCG/2 ML INJ ONE; -KETOROLAC TROMETHAMINE 30 MG/ML VIAL ONE; -MIDAZOLAM HCL 2 MG/2 ML VIAL ONE; -NEOSTIGMINE 1 MG/ML 10ML VIAL ONE; -ONDANSETRON HCL INJ 2MG/ML 2ML 2 MG/ML VIAL ONE; -PROPOFOL IV EMULSION 10 MG/ML 20 ML VIAL ONE; -SEVOFLURANE INHAL SOLN 250 ML PEN BTL ONE
== END 2018-07-26 ==
LOC: PT 14:59
PROVIDERS: ATTEND Podiatrist Foot & Ankle Surgery
DX: M25.571 Pain in right ankle and joints of right foot (principal); M25.471 Effusion, right ankle